=== PATIENT | female | born 1950 | race Caucasian/White ===

== ENCOUNTER 2022-08-12 12:00 | Outpatient (OUT) | payer MEDICARE, SELFPAY ==
--- NOTE | 2022-08-12 13:02 | P.CN_ITS ---
Consult Note: HPI Data of Consult Patient: new to practice Consult date: 08/12/22 Requesting Physician: Ivy Chow MD Primary Care Provider: Non-Staff Physician, Consult Narrative Reason for consult: Low back, bilateral lower extremity pain Narrative: this is a pleasant 71-year-old female who presents for evaluation. She notes increasing pain that radiates from her low back into the bilateral lower extremities. She has a history of a lumbar fusion, and her recent lumbar x-ray showed increasing degeneration and facet arthropathy throughout the lower lumbar spine. She has engaged in physical therapy and now continues in provider directed home exercises, but these have not provided lasting relief. She utilizes tramadol at a fairly high dose of 150 mg 3 times a day when necessary. She denies adverse medication side effects or loss of bowel or bladder control. cc:: CC: Ivy Chow MD Review of Systems ROS Status of ROS 10 or more systems reviewed and unremarkable except as noted in history and below Exam Constitutional Common normals: no apparent distress, oriented x3 and healthy appearing Respiratory Common normals: normal respiratory effort Effort & inspection: able to speak in complete sentences Back & Pelvis Other: tenderness to palpation throughout the bilateral lumbar spine. Pain is elicited with flexion, extension, and lateral rotation of the lumbar spine. Facet loading maneuvers are positive bilaterally. Strength noted to be unremarkable throughout bilateral lower extremities except for decreased strength rated at four out of five in the bilateral quadriceps femoris, anterior tibialis. Sensation is noted to be unremarkable throughout the bilateral lower extremities except for dysesthesia in the bilateral L4, L5 dermatomal distributions. Tenderness to palpation throughout the bilateral PSIS. Coordination remains intact. Gait remains nonantalgic. Extremity Common normals: normal to inspection Neuro Common normals: oriented x3, CN's II-XII intact bilaterally and no focal motor d eficits Psych Common normals: mental status grossly normal and cooperative Assessment and Plan Assessment and Plan (1) Lumbar stenosis with neurogenic claudication: (2) Lumbar spondylosis: (3) Lumbar postlaminectomy syndrome: (4) Sacroiliac joint dysfunction of both sides: Plan this is a pleasant 71-year-old female who presents for evaluation. She has failed physical and medical modalities, as listed above. Given her current symptomatology and failure to respond to conservative measures, including a provider directed home exercise plan, coupled with her surgical history, I would like her to undergo lumbar MRI with and without contrast to further assess. She is in agreement with this plan. Medications were reviewed. I agreed to prescribe tramadol 100 mg 3 times a day when necessary, which is the most that I will prescribe. She expressed understanding. We will obtain a urine drug screen today. She will follow up after the imaging is completed.
== END 2022-08-12 12:01 ==
LOC: PM 12:01
PROVIDERS: Visit Provider Anesthesiology
DX: M47.816 Spondylosis without myelopathy or radiculopathy, lumbar region (principal); M96.1 Postlaminectomy syndrome, not elsewhere classified; M53.3 Sacrococcygeal disorders, not elsewhere classified; M48.062 Spinal stenosis, lumbar region with neurogenic claudication
CPT/HCPCS: G0463